=== PATIENT | female | born 2000 | race Two or more races ===

== ENCOUNTER 2022-02-13 08:27 | Emergency (ER) | payer OTHER ==
[~2022-02-13] VITALS: Ht 157.5 cm; Wt 53.6 kg
[2022-02-13] MEDS ORDERED: LOES1TAB9 PO (08:55)
[2022-02-13] MEDS ORDERED: NS 1,000 ML IV ONE (11:30)
[2022-02-13 12:46] LABS: BASO % 0.2 % (0.0-1.0); EOS % 0.3 % (0.0-3.0); HEMATOCRIT 41.8 % (36.0-47.0); HEMOGLOBIN 13.8 g/dl (12.0-15.5); LYMPH # 2.2 10^3/uL (1.5-5.0); LYMPH % 14.3 % (24.0-44.0); MEAN CORPUSCULAR HEMOGLOBIN 30.7 pg (27.0-33.0); MEAN CORPUSCULAR VOLUME 92.9 fl (80.0-96.0); MONO # 0.5 10^3/uL (0.0-0.8); MONO % 3.2 % (2.0-8.0); NEUTROPHILS # 12.4 10^3/uL (1.5-8.5); NEUTROPHILS % 81.6 % (36.0-66.0); PLATELET COUNT, AUTOMATED 328 10^3/uL (150-450); WHITE BLOOD COUNT 15.1 10^3/uL (4.0-10.0)
[2022-02-13 13:19] LABS: CK-MB VALUE MASS < 1.0 NG/ML (<3.6); CPK CREATINE PHOSPHOKINASE 118 U/L (26-192); MB/CK RELATIVE INDEX 0.85 (< OR =4)
[2022-02-13 13:27] VITALS: BP 122/78
[2022-02-13 13:27] LABS: FREE T4 1.17 NG/DL (0.76-1.46); MAGNESIUM LEVEL 2.3 MG/DL (1.8-2.4); THYROID STIMULATING HORMONE 0.818 uIU/ML (0.358-3.740)
== END 2022-02-13 16:00 | disposition home or self-care (01) ==
LOC: M ED 08:27
DX: E86.0 Dehydration (principal)